=== PATIENT | male | born 1970 | race Caucasian/White ===

== ENCOUNTER 2019-12-06 11:26 | Emergency (ER) | payer SELFPAY ==
[~2019-12-06] VITALS: Ht 182.9 cm; Wt 145.1 kg
[2019-12-06 11:35] VITALS: BP 149/85; Ht 182.9 cm; Wt 145.1 kg
== END 2019-12-06 14:36 | disposition home or self-care (01) ==
LOC: ED 11:26
DX: U07.1 COVID-19 (principal); J98.11 Atelectasis; R05 Cough; I10 Essential (primary) hypertension; E66.01 Morbid (severe) obesity due to excess calories; Z68.41 Body mass index [BMI] 40.0-44.9, adult
CPT/HCPCS: 87804; Q0092; U0003-CS